=== PATIENT | female | born 1980 | race African-American/Black ===

== ENCOUNTER 2020-06-12 12:52 | Emergency (ER) | payer OTHER ==
[~2020-06-12] VITALS: Ht 182.9 cm; Wt 196.2 kg
[2020-06-12] MEDS ORDERED: INDO50CA91 PO (13:03)
[2020-06-12] MEDS ORDERED: BENZONATATE 100 MG CAP PO ONE (13:45)
[2020-06-12] MEDS ORDERED: MORPHINE 4 MG/ML 1ML VIAL/SYRINGE (J2270) IV ONE (13:45)
[2020-06-12 14:14] LABS: VENOUS BASE EXCESS 2.3 (-2.0-2.0); VENOUS HCO3 29.5 MEQ/L (23.0-27.0); VENOUS O2 SATURATION 55.1 % (60.0-80.0); VENOUS PARTIAL PRESSURE O2 29.9 mmHg (30.0-50.0); VENOUS PH 7.332 UNITS (7.330-7.430); VENOUS STANDARD HCO3 25.4 MEQ/L; VENOUS TOTAL CO2 31.3 MEQ/L (24.0-28.0)
[2020-06-12 14:20] LABS: BASO % 0.8 % (0.0-1.0); EOS # 0.1 10^3/uL (0.0-0.5); EOS % 2.6 % (0.0-3.0); HEMATOCRIT 42.2 % (36.0-47.0); HEMOGLOBIN 13.3 g/dl (12.0-15.5); LYMPH # 1.9 10^3/uL (1.5-5.0); LYMPH % 49.3 % (24.0-44.0); MEAN CORPUSCULAR HEMOGLOBIN 30.1 pg (27.0-33.0); MEAN CORPUSCULAR HGB CONC 31.5 g/dl (32.0-36.5); MEAN CORPUSCULAR VOLUME 95.5 fl (80.0-96.0); MONO # 0.2 10^3/uL (0.0-0.8); MONO % 5.8 % (2.0-8.0); NEUTROPHILS # 1.6 10^3/uL (1.5-8.5); NEUTROPHILS % 41.5 % (36.0-66.0); PLATELET COUNT, AUTOMATED 176 10^3/uL (150-450); RED BLOOD COUNT 4.42 10^6/uL (4.00-5.40); WHITE BLOOD COUNT 3.8 10^3/uL (4.0-10.0)
--- OUTSIDE RECORDS SUMMARY | 2020-06-12 14:23 | CCD | Summary of Care ---
Author Author [facility] Address Unknown Phone Unavailable Care Team Providers Care Preservationist Name Role Phone Raya Guerrero GAS TRANSFER OPERATOR PCP Reason for Visit * Reason Comments Follow-up Encounter Details Care Team Description Date Type Department Casie Larsen MD [address] [place] [id number] Morbid obesity (Primary Dx) 04/01/2020 Telemedicine [facility] at [address] [id number] Allergies No Known Allergiesdocumented as of this encounter (statuses as of 04/12/2020) Medications End Date Status Medication Sig Dispensed Refills Start Date Active Indomethacin 25 MG Oral Take 75 mg by 0 Capsule (INDOCIN) mouth Two times daily with meals Active Ibuprofen 800 MG Oral Take 800 mg 0 Tablet by mouth (MOTRIN)Indications: BMI every 6 (six) 60.0-69.9, adult, Morbid hours as obesity needed for Pain documented as of this encounter (statuses as of 04/12/2020) Active Problems No known active problemsdocumented as of this encounter (statuses as of 04/12/2020) Social History Date Tobacco Use Types Packs/Day Years Used Quit: 2008 Former Smoker Cigarettes 1 8 Smokeless Tobacco: Never Used Drinks/Week oz/Week Comments Alcohol Use 2 Shots of liquor 2.0 socially Yes Sex Assigned at Date Recorded Not on file documented as of this encounter Last Filed Vital Signs Not on filedocumented in this encounter Progress Notes * Casie Larsen MD - 04/01/2020 9:15 AM EST Casie Larsen MD, FACS, FASMBS, ZACKM Diplomat Min[facility]ally In[facility] Bariat[facility] [address] [facility], Physician's Office [facility], [address] [place] [address] CHIEF COMPLAINT: No chief complaint on file. Visit # 2 for pre-op / medical weight loss. HISTORY OF PRESENT ILLNESS: The patient is a 39 y.o. female who was seen for mon itoring of weight loss and screening for possible medical complications and nutr itional deficiencies. Measurements in clinic today are There were no vitals take n for this visit. There is no height or weight on file to calculate BSA. She has no complaints today. The patient's dietary lifestyle habits consist of 2 meals/snacks per day. The pa tient eats based on schedule. Portion size is approximately 3 oz per meal. The patient stops eating once feels satisfied . The patient eats approximately none calories per day based on estimation. The patient is making fair food choices. Exercise routine: No Exercise frequency: frequently Exercise length: 10 minutes per session There is no problem list on file for this patient. Current Outpatient Medications: Ibuprofen 800 MG Oral Tablet (MOTRIN), Take 800 mg by mouth every 6 (six ) hours as needed for Pain, Disp: , Rfl: Indomethacin 25 MG Oral Capsule (INDOCIN), Take 75 mg by mouth Two times daily with meals, Disp: , Rfl: Past Medical History: Diagnosis Date DJD (degenerative joint disease) Emphysema lung Hip pain History of snoring Knee pain Low back pain Menstrual irregularity IRINA (obstructive sleep apnea) No CPAP Shortness of breath Stress incontinence, female No past surgical history on file. No family history on file. Social History Socioeconomic History Marital status: Spouse name: Not on file Number of children: Not on file Years of education: Not on file Highest education level: Not on file Occupational History Not on file Social Needs Financial resource strain: Not on file Food insecurity Worry: Not on file Inability: Not on file Transportation needs Medical: Not on file Non-medical: Not on file Tobacco Use Smoking status: Former Smoker Packs/day: 1.00 Years: 8.00 Pack years: 8.00 Types: Cigarettes Quit date: 2007 Years since quittin.9 Smokeless tobacco: Never Used Substance and Sexual Activity Alcohol use: Yes Alcohol/week: 2.0 standard drinks Types: 2 Shots of liquor per week Comment: socially Drug use: Not Currently Types: Marijuana Comment: 2007 quit Sexual activity: Not Currently control/protection: I.U.D. Lifestyle Physical activity Days per week: Not on file Minutes per session: Not on file Stress: Not on file Relationships Social connections Talks on phone: Not on file Gets together: Not on file Attends protestant service: Not on file Active member of club or organization: Not on file Attends meetings of clubs or organizations: Not on file Relationship status: Not on file Intimate partner violence Fear of current or ex partner: Not on file Emotionally abused: Not on file Physically abused: Not on file Forced sexual activity: Not on file Other Topics Concern Not on file Social History Narrative Not on file REVIEW OF SYSTEMS: [Option: Pertinent items are noted in HPI. ] GENERAL: Denies fevers, chills or malaise. SKIN: Denies new rashes, sores. HEAD: Denies new headache, migraine. EYES: Denies any vision change, diploplia. RESPIRATORY: Denies cough, sputum, hemoptysis. CARDIAC: Denies chest pain, palpitations, dyspnea, orthopnea. GI: Denies nausea, vomiting, vomiting of blood, change in bowel habits. URINARY: Denies polyuria, dysuria, nocturia, hesitancy. MS: Denies new back pain or other joint pain. ASSESSMENT: The patient is doing fairly well. PLAN: The current diet and exercise regimens were reviewed in clinic, including protei n and average fluid intake. Recommendations for continued safe weight loss, hea lth and nutrition were discussed in detail. The patient was encouraged to contin ue diversifying the diet and to maintain and expand the exercise program. Specif ically: 1. RD recommendations 2. Bariatstic 3. PA daily 30 min A return appointment will be scheduled in 1 month for her next medical weight lo ss visit. Patient is encouraged to call the clinic with any questions or concerns. Patient demonstrates understanding, is amenable to the outlined plan, and there were no barriers to education today. This is a telephonic visit which was performed without the use of video technolo gy due to patient inability to connect with video. The patient was informed of t he risks including security breach, technological failure, inability to perform a physical exam which could delay or prevent an accurate diagnosis, and potentia l complications from treatment decisions rendered over a telephonic platform. Th e patient understands and consented to the use of a telephonic visit/telephone c all. Time spent on the telephonic visit today: 15 minutes Casie Larsen MD documented in this encounter Plan of Treatment Care Team Description Date Type Specialty 06/01/2020 Telemedicine Surgery Health Maintenance Due Date Last Done Comments MMR Vaccines (1 of 1 - 1982 Standard series) Varicella Vaccines (1 of 1982 2 - 2-dose childhood series) DTaP,Tdap,and Td Vaccines 1988 (1 - Tdap) HIV Screening 1994 Cervical Cancer Screening 2002 5 years Influenza Vaccine 01/21/2020 Pneumococcal Vaccine: 65+ 2046 Years (1 of 1 - PPSV23) HIB Vaccines Aged Out No longer eligible based on patient's age to complete this topic Hepatitis A Vaccines Aged Out No longer eligibl e based on patient's age to complete this topic Hepatitis B Vaccines Aged Out No longer eligibl e based on patient's age to complete this topic IPV Vaccines Aged Out No longer eligible based on patient's age to complete this topic Pneumococcal Vaccine: Aged Out No longer eligib le based on patient's age to Pediatrics (0 to 5 Years) complete this topic and At-Risk Patients (6 to 64 Years) documented as of this encounter Results Not on filedocumented in this encounter Visit Diagnoses Diagnosis Morbid obesity - Primary documented in this encounter
--- OUTSIDE RECORDS SUMMARY | 2020-06-12 14:23 | CCD ---
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 Research Ecologist Name Role Phone Kody SUAZO Unavailable Unavailable Larsen, Casie Unavailable Unavailable Larsen, Casie Unavailable Unavailable Larsen, Casie Unavailable Unavailable Larsen, Casie Unavailable Unavailable Larsen, Casie Unavailable Unavailable Larsen, Casie Unavailable Unavailable Larsen, Casie Unavailable Unavailable Larsen, Casie Unavailable Unavailable Larsen, Casie Unavailable Unavailable Larsen, Casie Unavailable Unavailable Larsen, Casie Unavailable Unavailable Larsen, Casie Unavailable Unavailable Larsen, Casie Unavailable Unavailable Larsen, Casie Unavailable Unavailable Larsen, Casie Unavailable Unavailable Larsen, Casie Unavailable Unavailable Larsen, Casie Unavailable Unavailable Larsen, Casie Unavailable Unavailable Larsen, Casie Unavailable Unavailable Larsen, Casie Unavailable Unavailable Larsen, Casie Unavailable Unavailable Larsen, Casie Unavailable Unavailable Larsen, Casie Unavailable Unavailable Larsen, Casie Unavailable Unavailable Larsen, Casie Unavailable Unavailable Larsen, Casie Unavailable Unavailable Larsen, Casie Unavailable Unavailable Larsen, Casie Unavailable Unavailable Larsen, Casie Unavailable Unavailable Larsen, Casie Unavailable Unavailable Larsen, Casei Unavailable Unavailable Larsen, Casie Unavailable Unavailable Larsen, Casie Unavailable Unavailable Re-disclosure Warning The records that you are about to access may contain information from federally-assisted alcohol or drug abuse programs. If such information is present, then the following federally mandated warning applies: This information has been disclosed to you from records protected by federal confidentiality rules (42 CFR part 2). The federal rules prohibit you from making any further disclosure of this information unless further disclosure is expressly permitted by the written consent of the person to whom it pertains or as otherwise permitted by 42 CFR part 2. A general authorization for the release of medical or other information is NOT sufficient for this purpose. The Federal rules restrict any use of the information to criminally investigate or prosecute any alcohol or drug abuse patient.The records that you are about to access may contain highly sensitive health information, the redisclosure of which is protected by Article 27-F of the [facility] Public Health law. If you continue you may have access to information: Regarding HIV / AIDS; Provided by facilities licensed or operated by the [facility] Office of Mental Health; or Provided by the [facility] Office for People With Developmental Disabilities. If such information is present, then the following [facility] mandated warning applies: This information has been disclosed to you from confidential records which are protected by state law. State law prohibits you from making any further disclosure of this information without the specific written consent of the person to whom it pertains, or as otherwise permitted by law. Any unauthorized further disclosure in violation of state law may result in a fine or custodial sentence or both. A general authorization for the release of medical or other information is NOT sufficient authorization for further disc losure. Encounters Encounter Providers Location Date Indications Data Source(s ) Outpatient Attender: Casie Larsen 06/28/2020 12:00:00 AM [facility] Outpatient Attender: AMNDO SUAZO 06/28/2020 12:00:[address] [facility] Outpatient 06/01/2020 12:00:[address] [facility] Outpatient Attender: MANDO SUAZO [id number] 04/11/2020 12:00:[address] [facility] Outpatient Attender: Casie Larsen [id number] 04/01/2020 12:00:00 AM EST - 04/01/2020 10:30:[address] [facility] Outpatient Attender: MANDO SUAZO 04/01/2020 12:00:[address] [facility] Outpatient Attender: Casie Larsen [id number] 02/24/2020 12:00:00 AM EST - 02/24/2020 03:47:38 PM EST Body mass index (BMI) 60.0-69.9, adult [facility] Body mass index (BMI) 60.0-69.9, adult Outpatient Attender: MANDO SUAZO [id number] 02/04/2020 12:00 :00 AM EDT Morbid (severe) obesity due to excess calories [facility] Morbid (severe) obesity due to excess ca lories Outpatient 11/24/2019 12:00:00 AM [facility] Insurance Providers Payer name Policy type / Coverage type Policy ID Covered constitution party ID Covered constitution party's relationship to horn Policy Horn Plan Information [facility] [id number] [facility] [id number] [facility] [id number] Self [id number] Problems, Conditions, and Diagnoses Code Display Name Description Problem Type Effective Dates Data Source(s) E66.01 Morbid (severe) obesity due to excess ca lories Morbid (severe) obesity due to excess calories Diagnosis 02/24/2020 02:11:32 PM EST [facility] Z68.44 Body mass index (BMI) 60.0-69.9, adult B edwina mass index (BMI) 60.0-69.9, adult Diagnosis 02/24/2020 02:11:32 PM [facility] Z71.3 Dietary counseling and surveillance Dietary coun seling and surveillance Diagnosis 02/04/2020 08:19:38 AM [facility] Results ID Date Data Source [id number] 04/12/2020 06:11:05 PM [facility] Name Value Range Interpretation Code Description Data Valerie rce(s) Supporting Document(s) Progress Note [facility] OOOATg3vUwHFQvVh89/NNHkjXJHne1DxOUpyHVz8QTswBJXpR3YeMBK1bB7iCHC3OEiKLpYqTlEsMhWv lbm [file] JbKbT9VxMrHR4RKp0CZpQ1ZHD2tUNsZl4TZOM7UBRULeLkSX8UCDg= ID Date Data Source [id number] 04/11/2020 01:33:43 PM EST [facility] Name Value Range Interpretation Code Description Data Valerie rce(s) Supporting Document(s) Progress Note [facility] KEUQWq0jKiRKAjWz01/LPCouBNBxk9GaJUbsDIh3JJghQAEyZ1LcODD8mT7xPWF3TDgSLuHiXhCpPkXm lbm VsJkbKVgJeBDLxWhxOPdHkUSdrUbrglFXkGX6VlYA1SCWuL02yBIEpQPFeU1NrKUMuXlP+Lg7TIVZpoC VsWV4YHhyA5U1hsrmPYx5cxN5uyqMVu9nG0h05IaEUWnThLrEbU2qUim4JqijH28tlPzP03W+1a0l3Ik PThEvOMXYQ+3W24P9sTwI7QhxloDws/PM/cRgFnueJ /G/8C8OuGJ8FW/5XLDR6obl8I7PWJRHeHz4kO2btwVr99ERteo42jkGC8N8TvLy82CGY6yAmRMelkbpE yLnH1YWNJEy4t/tsHfK2CvRXNujlq1iva+F/wPdviQ7qR+eJslyAcrbZL7EGAbSul6HLSvhlitmnfxNm iON3CszmIt8xUvWA+qmB7QWcEplGdqbE1vLlSa522J 10rnbv1RbLH4YyCLbwOTvW3PG/mt7GIaA/iZH2epDf8AwcWY5fs3Oqsh4fAESNHE+camouflage assembler/JUJhsi8z7S5 [file] AgICAgICAgICAgICAgICAgICAgICAgICAgICAgICAgICAgICAgICAgICAgICAgICAgICAgICAgICAgIC AgICAgICAgICAgICAgICAgICAgICAgICAgICAgICAN CiAgICAgICAgICAgICAgICAgICAgICAgICAgICAgICAgICAgICAgICAgICAgICAgICAgICAgICAgICAg ICAgICAgICAgICAgICAgICAgICAgICAgICAgICAgICAgICAgICAgICANCiAgICAgICAgICAgICAgICAg ICAgICAgICAgICAgICAgICAgICAgICAgICAgICAgIC AgICAgICAgICAgICAgICAgICAgICAgICAgICAgICAgICAgICAgICAgICAgICAgICAgICANCiAgICAgIC AgICAgICAgICAgICAgICAgICAgICAgICAgICAgICAgICAgICAgICAgICAgICAgICAgICAgICAgICAgIC AgICAgICAgICAgICAgICAgICAgICAgICAgICAgICAg ICANCiAgICAgICAgICAgICAgICAgICAgICAgICAgICAgICAgICAgICAgICAgICAgICAgICAgICAgICAg ICAgICAgICAgICAgICAgICAgICAgICAgICAgICAgICAgICAgICAgICAgICANCiAgICAgICAgICAgICAg ICAgICAgICAgICAgICAgICAgICAgICAgICAgICAgIC AgICAgICAgICAgICAgICAgICAgICAgICAgICAgICAgICAgICAgICAgICAgICAgICAgICAgICANCiAgIC AgICAgICAgICAgICAgICAgICAgICAgICAgICAgICAgICAgICAgICAgICAgICAgICAgICAgICAgICAgIC AgICAgICAgICAgICAgICAgICAgICAgICAgICAgICAg ICAgICANCiAgICAgICAgICAgICAgICAgICAgICAgICAgICAgICAgICAgICAgICAgICAgICAgICAgICAg ICAgICAgICAgICAgICAgICAgICAgICAgICAgICAgICAgICAgICAgICAgICAgICANCiAgICAgICAgICAg ICAgICAgICAgICAgICAgICAgICAgICAgICAgICAgIC AgICAgICAgICAgICAgICAgICAgICAgICAgICAgICAgICAgICAgICAgICAgICAgICAgICAgICAgICANCi AgICAgICAgICAgICAgICAgICAgICAgICAgICAgICAgICAgICAgICAgICAgICAgICAgICAgICAgICAgIC AgICAgICAgICAgICAgICAgICAgICAgICAgICAgICAg ICAgICAgICANCjw/iCNpV8kawBSayjA5W9hyRp0URf2BMT0wd9MjEQRlMHfqtyXoCwmSSjCnWRQqKegT Bpp9JJtxKD7IhMFhP2IkS8IpOWsiDA5IEKBwVLOgdUOhFUCiOGFvDyL2DLFoYUmqQX7AaMOdDXbnGSFz DCCaOwKpRVLbGKChINVhNTOcGDSJVI8KWbMgD3BjwL 31HNTSTs2+GIekqxMaNqyCBdM7WEIxc5YaTOv8QX3FFVXrSjloc8TcPtyvBRMPNPnrDN2ZNOT5JAW4OP HyIv9PGTSdY700uwNhXV3YMc3KRcFuVP9wxq6GVqdxMLCoRbcYLth6DIjhZX1HwZTpIZuYtc0ardMero WWz2NdceSyaSAJRNPwnDDdZWBSJDL5cK7jNHLPVOQC RV9sVXNbZLSqVxTqDvVcWYDiPZxnWSVDRNbIUkUzJ9Agx1PeCgO3GRAaUzSbZCsiQOCuMaN2UH24yTpu UN7BIMAmLREdVD07EUO0CJXmRf4FQg9KYtJaCR2yfu8SOnZsKMXgPbgBVzl0LMlkQW4FuAJgT1JoqXHh z0pFUsBzX2FLBJR1ZLTkXl5QFQZaGxNgYJPcPSbmII 0qLLWiWAVWeUppvfK2XI5NOQ7rpuMkJJ2HEdDlZb9mIk0QLyHbI8XaV5BiMYVfXVWGBBnkWG0ZKRuqNL 4mRU9Ay1DQmMBecT2yzp7FSJGvCCHqYjuzne8OQodmK1S8tCtlAVNkBktgFJXPDYwnVE7OMZCpVMU2OZ QzCfSqKSABNgGsF57cLF8UO6Zps29lBpT0STGjPzRp HMdzUZ40uNejegLcpLMukZtsLO4PKz2+DQplbmRvYmoNCnhyZWYNCjAgMzENCjAwMDAwMDAwMDAgNjU1 CcOuGg8XXFZzXMSmWVSbFdQqHPEbNXEkYNltRRLnRSZ7EMN8ESPlEUUqJX8WVkHqKPRtZuRwWgNdAIQh VIHfno3NQVDbASNvEBC2HuXnXYBcBUXcPLhfNFKoCZ RyKDshRYHjSLMwVG8ODnXiOYAtRMU2EbOwVYEoXCUauq6LYEKaJLHuKyT1BcMcVFAeHEUqOSinYNWyNW I4DLI6XAZxFIZkGG4YQgYlPOLhWFNcPBJeYOThPPDkop0QFZZwVAYzQHQ2RMUnMBUpDKYcOFfdDDRfCR MuXWQ3OJVeWZArHE4HUmPvRWDzJEVlRJQyWYExXWTj bt5IULIeQNSgGRJxCxBgDNCwHTNjPEpfMEWbFRU8YpF1OGQxBAOnHQ4JCcVpMILwTNT2WQBxBGNlXWWn bx2ZDXPbGMWtWPB4OPEwPAElZOArRVodLCRaFKM3CwPnZMEzUIPqYQ7IAxFmSMOfFGS2GWCxQMXeJOZr fu8EXYZtBRIzKyG8YLCwLVUpCYDaKRecHNBbVMO6DT a0ORNdYMQeRE7ENlKnBQCgXlq0XNZgHZPfFYCedz3ALITpERBwHVR2HUZiPQBaOVKaRWzpIRCjEVC0Sf EtIVCjWVBvRJ2TTdWpCZMhZnokBGRnEJNeAPHget7YMYBtSUHjJLYkRWIwTHZiKXJxWIibVPAiETZ8VJ A0VUIkUTPoGH6JPlKwHMIkVqy2IhFvNQJmSMSgzt8N ZDCrYDWeTQO2QYXhJWLySFRhDFwdXXYtKCOaGIL7IZIgYPXmLF1LCxShUHSnWeJ8LQAdPTRfSPTpni0O lOKkwElqjl1EDDiIFk1UjZcmILCrOJygBv6ldGIkRGGzVQJQEd1DzvGwOLVpIESMKDwwTHDiYWt4EoLg TKZhIeH3N8YhVwWkPsslBxgpEaMzUfBjNtMmOrI1Pa e6RSF0EPUtUiBfIwYjMjC1PBVtTAKcBaBhVfQsNGT+PR7wQXq+Jp0Qm8PnpdD5zmMqMKpiHEx8ZQ8GLH XHO2BPLs== ID Date Data Source [id number] 02/24/2020 03:08:30 PM [facility] Name Value Range Interpretation Code Description Data Valerie rce(s) Supporting Document(s) Progress Note [facility] TLDVSh5gMcSTJuRb35/LFNyxTQNpl9JgYZscXZd5NJlcFVWfL3XxYPF0qN6oSMB3PZvDAvXuIlHyOXO8 lbm [file] AgICAgICAgICAgICAgICAgICAgICAgICAgICAgICAg VZTlKICeNRVqIYUzRMFcYUMlRWXuNAFzNBEwZBRmATGcMMVgWLDjWBPmOVMaNANiRJYwJYAxDY8KZCPj ICAgICAgICAgICAgICAgICAgICAgICAgICAgICAgICAgICAgICAgICAgICAgICAgICAgICAgICAgICAg ICAgICAgICAgICAgICAgICAgICAgICAgICAgICAgIC MtQAJgWO8HRHTlEMZfEXJuOSJjXMEeUETpLPUoYUFaDPWuLDIvJPVuUUScLOWcYFZcZGVtHQKuNRJyVC SdSYNdUPFwEVOkJSRwBJXjNIQpIXJwXRKkWNMhOVUvQJUtTMUmIHAxLLPuVSWhJZ8VHCWmCFNrYWFjCP AgICAgICAgICAgICAgICAgICAgICAgICAgICAgICAg YSRmQNIhAFFgTVIoLXWdRBAaOHZlWRAwZBPzKYCoENCrRBUvPOYeDEOkLKKfGQMwJFVhZPYcKIQfSB2O ICAgICAgICAgICAgICAgICAgICAgICAgICAgICAgICAgICAgICAgICAgICAgICAgICAgICAgICAgICAg ICAgICAgICAgICAgICAgICAgICAgICAgICAgICAgIC ZaTNUnGMHrFQ4AAJLaVDGgROQwWAFlEQFzVFDzTUYmPBTlTXIlZOIvPQCaMFHeLKZxHKIvRGFeXWJhMH CqUKBoLQRlQCYnTXZsGIGtHLEjONMgXKYiWHWrHHZtGEQiFVZzMAAkBZCeHCIcMSLuZA8UDQMeECVwTC AgICAgICAgICAgICAgICAgICAgICAgICAgICAgICAg ICAgICAgICAgICAgICAgICAgICAgICAgICAgICAgICAgICAgICAgICAgICAgICAgICAgICAgICAgICAg ZT9SOBIjQGTcHOOuMOCcTWHnXOElRLYgZNKmHBTqFJCyVBKhSXRxTQEdBVTwUDHiXDEzRZKxTPJiCMIr ICAgICAgICAgICAgICAgICAgICAgICAgICAgICAgIC FfPYMxIVNpJPGgKA3GHZGbXSFzEAYnQZHmUALwXUSjWETuKZRoPKEqLSQpVJUjKPSvZMMfWINzTEKrSS JsJIPdNHZiWEZwOXNjYXZrNPXyZJZoKJQeBUVzJGImRXXwLQUkTFDcEAExNOZzPNMyNDSqRJ7RZEJtLB AgICAgICAgICAgICAgICAgICAgICAgICAgICAgICAg ICAgICAgICAgICAgICAgICAgICAgICAgICAgICAgICAgICAgICAgICAgICAgICAgICAgICAgICAgICAg GHPuWM9RMF74qLSsz3Y3DXTdXC8ejsk/Lj7YJDtotgHdrKDnIR2UNgJiBW0afn0ZYlFvSN0tev6NTAyK YkKuG0N2xJRlULHePZHJBdAnQ74nLRwcSn68AFjrOW WsYpYvUPe5Pp9ASlRvP3pxBRYlHmA9OANgDbY8SQIsObG7SJImTjRsOQEyFQSuXYYjYYWBEUS8BZSsJj ZhXXldWP2Ph8QnoQK8JUe+Bp8VHC8ia3RkQFhxLBOoOT1jbg0HYOtPPnSjY8RejcY5WYX9BTRsNr3IUR ZjGDEwpVOoGwVsTEGYRlMwY4AlvI40VCAIQa6+DQpl axDsRtcCGrT5JXMng0FxOIs2IH5PBGIcURy5nEPlEZTbP0Zxu9CyDl26OXWgJrsqLygrwhcoDUNlW691 dhvoCNEgRHDyOEEnYZ8pTFUxKAWcDiLbMBVPZW2EJFKoLKXxmATnXBObCTQVVO9BZRulYMS8MPEueiXf xUQlCCblRY6VZPQokaMoEvOrJJTZZWl+Sn0OYX2oa7 TzEXwmQqDnPL2lgk4KUGdOEmFiH5Q1cDGbK8B8KPjvDt9OYCLbLEVfOrBbQEDVEXbpLU5RJT5czmZ0ZY 8ByNNrQOBmMWOcaXCrNSa6O69upSJmRUmoUX1DOQF+Chantel+Bi1LWEQdERZcFNIrNsJgFLCSBfGwV0IiN9 CJd8DdP9HqPK07fScvdyFuCShaPP2VJE8nCRCdSZJD AG7XnWWeoV4kkyWjHDVtOJXBHsQwJ34zyIRpUQHqMFD2IQClEl1SNMAtI1RikfMlvQqiyhUwEPOqHDNU FZ1ZHAcockNvqVUwgUimTL10zIklKA0LBq0YRhOaVA9elz1DgLRbWf4ANDQxCH7YQDTeYLMtPOGgUKN4 NCLaDkWcBEhyRIGxQFAoIWE2FHEiHXIqEI5JZtEcJS BlCQVxLegyHLRnNEWshq5UWZTuTBZ6ZnqeFAEsXLHhZORkVIriPFJxCXBbZOB1SEGsEWDlUQ4CNlTrJJ ZyFXHdJZzrVNSaXPHres4UIPJhKBFuDHX3LxFdATUoFHAjQUokRZQcOZW8RlHaAKKsUSRtYA0UFoBbDB LxNXh8WfnbUETnBXQfwr2UZDPuINNwSZP9NrGzOHDc XJIuIEbcMUBvXNR0QNJjCWZhIHLaUU8GWjJfTDXfBUZ6DKThTHZzPRQeef9STJVfGOSxYeZ4BYMuPETb NGQyQHavNFSxLDS4Qtk9YYJyZGKmLO9BIbNzUDBwSMqnGZTvWQHyIMPnsu1DFCHyZWPiPyNaIsXzVGGb KOQkQDmqXXWtKPV8UNK3GOPfHOOtDK7MOoGqIHMzXD w9NppdKGBpGVJqza8PBZIeOLMgQQs3DrDrPDZfEMJbUXrpUVWcEQP4IFN1ZKFkGTMsFT5AYoBtNYTbWc VoRWvmZRLiVNBuxy5DOABoOMBzKETxNLFkSJKvOAAcNIiaZLAdVAMzNTG1NSOjMHMxNF9ZCoVyGFYeLF L7BNFnQUZqECEiyp0MHOCkRSL4BiY0HBBvTJSmUGNz PDekUQJkHDM8TqAmNNRsVNScEN4GRpKhNZTeGGtvCAMcXTKfEZRxgy1ONJReVJE2OLI6EYXxPPPgFVDy GZpmJGFeNCL0Eul4GCVyQOUdCU8RJfYxYOTgMKq6CzGyWBLcHPLchj8ZNQWfPJS0XDc9PuJrZBNzFSGi OMfeGPAhTTKbKpnsRDMvTODjRF2FMbOeLSErFJS8Rw mpUODlQPFckv7QLBZiYED1ADH4WgTwEJRjVBJgQJiaXNGgKYAjWDidVFFjTGGjQI9QJjBlUDHiUOK8Zr AtATEeUZRcch7WMGBdCRD8SmHmWkZzAQWwXZAdHStvLIBcIQTwXTvbHIJjPJTsDU6TBdKbIPcvHXPNJd e4IGmgX3v1KLPaMQ5VB6Ycq8UcDnckONZGFKskGA7f gpAkUPJbRz5IU2qMFuoqGaLnYYK9HcAdKEC0IgpuTGMxMqPkEIX8IuKeGEY2St0rRPU9VMR9ZmFqUfE4 NfakJKQ7I0VfRMFmUSY9VnPuEXq7NgNwWG2TMl8XSjY8HPD2qNJcMs5TQBY6OpNKNuYxRX0JGUy= ID Date Data Source [id number] 02/04/2020 10:39:56 AM EDT [facility] Name Value Range Interpretation Code Description Data Valerie rce(s) Supporting Document(s) Progress Note [facility] PNTFPn2zJzOKMwTd34/GHYutAWNyj5PtBFodXSb3APjhDDUjT5XjDAL9mX0iQKK1ZYtRIwCsJvKqYUL1 lbm [file] Atfhau7Ur7nw9Gn7ThJXhDR0zdnSxZZkAZXPzt+ky3i1LdAnWREw/I3yn6e/maoq/FQiXnL0sDod++Del[employer]essen [employer] Manager [file] rpdE1NczuWRE6Vx/Jose R/4OPvSYvys+GoGe0wP/W3ZwN0CaOEY8+KAIyJ3zspUVQ0YWsKMWNvEZbonJ8O [file] ICAgICAgICAgICAgICAgICAgICAgICAgICAgICAgICAgICAgICAgICAgICAgICAgICAgICAgICAgICAg ICAgICAgICAgICAgICAgICAgICAgICAgICAgICAgIC AgICANCiAgICAgICAgICAgICAgICAgICAgICAgICAgICAgICAgICAgICAgICAgICAgICAgICAgICAgIC AgICAgICAgICAgICAgICAgICAgICAgICAgICAgICAgICAgICAgICAgICAgICANCiAgICAgICAgICAgIC AgICAgICAgICAgICAgICAgICAgICAgICAgICAgICAg ICAgICAgICAgICAgICAgICAgICAgICAgICAgICAgICAgICAgICAgICAgICAgICAgICAgICAgICANCiAg ICAgICAgICAgICAgICAgICAgICAgICAgICAgICAgICAgICAgICAgICAgICAgICAgICAgICAgICAgICAg ICAgICAgICAgICAgICAgICAgICAgICAgICAgICAgIC AgICAgICANCiAgICAgICAgICAgICAgICAgICAgICAgICAgICAgICAgICAgICAgICAgICAgICAgICAgIC AgICAgICAgICAgICAgICAgICAgICAgICAgICAgICAgICAgICAgICAgICAgICAgICANCiAgICAgICAgIC AgICAgICAgICAgICAgICAgICAgICAgICAgICAgICAg ICAgICAgICAgICAgICAgICAgICAgICAgICAgICAgICAgICAgICAgICAgICAgICAgICAgICAgICAgICAN CiAgICAgICAgICAgICAgICAgICAgICAgICAgICAgICAgICAgICAgICAgICAgICAgICAgICAgICAgICAg ICAgICAgICAgICAgICAgICAgICAgICAgICAgICAgIC AgICAgICAgICANCiAgICAgICAgICAgICAgICAgICAgICAgICAgICAgICAgICAgICAgICAgICAgICAgIC AgICAgICAgICAgICAgICAgICAgICAgICAgICAgICAgICAgICAgICAgICAgICAgICAgICANCiAgICAgIC AgICAgICAgICAgICAgICAgICAgICAgICAgICAgICAg ICAgICAgICAgICAgICAgICAgICAgICAgICAgICAgICAgICAgICAgICAgICAgICAgICAgICAgICAgICAg ICANCiAgICAgICAgICAgICAgICAgICAgICAgICAgICAgICAgICAgICAgICAgICAgICAgICAgICAgICAg ICAgICAgICAgICAgICAgICAgICAgICAgICAgICAgIC AgICAgICAgICAgICANCjw/bYBnG1bymDAejwZ0B8jaSf2ARz2ISS8mo6XkPDMcLAoikeBfIerACtXwYB CoUvdFWwu2AOleAA3AjFKvB4XfP9YhZIciCP5NTXImQGKkwMNhYVLsEODgAsT5YEMuBVvbMX6PfDCrGP uhXJYaNBIjAG3HLEHeM288wiSlUE6UXs1AReQvHW4r ox6ZDaTgVMLbEzzEXra0YWnlXW1RmPYlsXQwIsUoATQJQqMyA0wks7FfOlDbBQZHNHkpAY4Jf8SqkGIt DQo+Tn7QYH4xt5MwHNwfQkVmSZ9cfd5VRQyGMaJiQ1PwwUywZYSbd0zpUZWyKO0dqQJzCNV2ODMpoaHk SDHNADlbjgHcncdnIgVpRLOQOjRoiXKgEJ5tCZ9kXC NtKPL1BnLmTCSZMI8UYMLeHUOilQYmXXQfUCXQDX9PAEhiZXE0RVSnhoTkpADeWDeaXO1SJURwuhOtSn IgMCBSDQo+Dv7COX0uz0LeODtvBOSgTL6vzl1MHTgBRxFfA4K5rUSwZ2O0TBmxBz9PJROmPIYcEsKqBP DNQXbwTA0HUM7ljhE8XQ3PeHQwQPRuZXFpoXGkHRy0 P77qwAFjIHctXX6NDQS+Chantel+Ay7NWIBsECPgRSZbNmDwRJNDOkOaD0IlJ0FIb1VaL7ZoYY22xTwmgjHe HFllFY8PHM6sEVLaKBALMD9NlAKkqQ9gomVbSnPbDCZUZpQqS81qiXAjWCHkSINuDUNkXz7BTQRmA3Qg sqNvnPtjpuQjIPQeGXUEUD7ZENbjfjPjwUGuqEgvQN 34bNglFI3RCt9JYnFeNX6gdv4BiOReIi2YOUGlTZ5KJTDmZQExKCExJZU0KKInOpTqJSdcZNPyRQGhVC B7SPPyYYUmJV1COvRdNZVqKxZcTXVoXAFiCLIowu9LUZUpXZWlRvZaRPJhVNKuLJSbWCztDOAxVBPuOF T8BMAwKOTcFH3HTiOjZHBzWYI7AnKgWIQmPWPezi8K INOcFBArOWPlVZRdJPPtGXSgKGvlKALxHJX0QKdiHMTkJXIrDG9NNtPiNLPrASBpLtwvLQCnKXRyrq8G LHWyNVEkMXB9GFXcUOPxFNNiTNolEPMtAJZ3WcA2ENJbUMDjTJ6UKeOvWAYaCQR8GNtaVLAaLANnfv6H HBCkSXLhOhijNpTzRETiEREkWBkuHZXlELP8OVQmLZ ZmQOGiOQ5KIsIsBITzCYbiBficYEPgUMUsig0JGQUvWEMvJVF2XaHlWGBiCDYuCYmsSSQnHOS6NPN3VX VxYSIsDL1EBvPfCLBlACr9LdMwZFAjDVVkcj3EKRCkRRBjBZsgUtQdEDGgFXGnOFbcYOPrNHFeWGy4NC FnXEAnRE6FAjVxYLJvYyPcBkwiBETxGPQiqt9LFMTj QZWeGFY2HJVaEGEzCYUkHVokRAPfDZShHGLbDTWsQTQbOH9MXaVhEVKbZuAxPWIrYCKlBTPpzr2JPFDl HKYeMwX8VXCbQUIgAROoZGl5svHqsLWdFTw2RY3IB8CudsNdJvJDYv2Ze458ZUT1ABNcFz4ME2jgWo7n BEEuEWXBHx9JTWv2KuKdLlSuGcVfLaO5ArQ4UxHgTh vzTeQdUFZaNQllZ2T+VJn3XZDbBFK0JfTmOmIoGZRtCSQnR8K8CFE4MqSdFEMqES5tWMNSYk1+DQpzdG WrdHcjVNRMMnLmAKeuUPhkRNPWNg7W Procedure Social History Code Duration Value Status Description Data Source(s ) Alcohol intake 02/24/2020 12:00:00 AM EST Current drinker of al cohol (finding) completed Current drinker of alcohol (finding) [facility] Tobacco use and exposure 02/24/2020 12:00:00 AM EST Never used co mpleted Never used [facility] Cigarette pack-years 02/24/2020 12:00:00 AM EST UNK completed [facility] Cigarettes smoked current (pack per day) - Reported 02/24/20 12:00:00 AM EST UNK completed [facility] Smoking 02/24/2020 12:00:00 AM EST Former smoker completed Former smoker [facility] Alcohol intake 02/02/2020 12:00:00 AM EDT Current drinker of al cohol (finding) completed Current drinker of alcohol (finding) [facility] Vital Signs ID Date Data Source [id number] 02/24/2020 03:48:00 PM EST [facility] Name Value Range Interpretation Code Description Data Source(s) WEIGHT RECORDED 428.58 lb 428.58 lb [facility] Body height Measured 72 in 72 in [facility]st [facility]
--- OUTSIDE RECORDS SUMMARY | 2020-06-12 14:23 | CCD | Summary of Care ---
Author Author [facility] Address Unknown Phone Unavailable Care Team Providers Care Tie Layer Name Role Phone Yolanda Raay Fischer STOCK SELECTOR PCP Reason for Visit * Reason Comments Nutrition Counseling Encounter Details Care Team Description Date Type Department Mirela Herrera RD, CDN [address] [place] [id number] Morbid obesity; BMI 50.0-59.9, adult; Nutritional counseling 04/11/2020 [facility] [address] [phone] Allergies No Known Allergiesdocumented as of this encounter (statuses as of 04/11/2020) Medications End Date Status Medication Sig Dispensed Refills Start Date Active Indomethacin 25 MG Oral Take 75 mg by 0 Capsule (INDOCIN) mouth Two times daily with meals Active Ibuprofen 800 MG Oral Take 800 mg 0 Tablet by mouth (MOTRIN)Indications: BMI every 6 (six) 60.0-69.9, adult, Morbid hours as obesity needed for Pain documented as of this encounter (statuses as of 04/11/2020) Active Problems No known active problemsdocumented as of this encounter (statuses as of 04/11/2020) Social History Date Tobacco Use Types Packs/Day Years Used Quit: 2007 Former Smoker Cigarettes 1 8 Smokeless Tobacco: Never Used Drinks/Week oz/Week Comments Alcohol Use 2 Shots of liquor 2.0 socially Yes Sex Assigned at Date Recorded Not on file documented as of this encounter Last Filed Vital Signs Not on filedocumented in this encounter Progress Notes * Mirela Herrera RD, CDN - 04/11/2020 11:30 AM EST INITIAL NUTRITIONAL ASSESSMENT Date: 04/11/2020 Patient Name: Aranza Maceod : 1980 Patient's Desired Procedure: Lap vertical sleeve gastrectomy Physician: Dr Larsen Support System: This is a telemedical visit. The patient was informed of the risks including sec urity breech, technological failure, inability to perform a comprehensive physic al exam which could delay or prevent an accurate nutrition assessment, and poten tial complications from treatment decisions rendered over a telemedical platform . The patient understands and consented to the use of tele-health services via [employer] on this date. The patient is aware of co-pays and fees that are associated with this visit. Either the most recent weight on file or a stated weight will b e used for assessment and coding purposes. Diagnosis: 1. Morbid obesity 2. BMI 50.0-59.9, adult 3. Nutritional counseling See MD Note. There are no active problems to display for this patient. Assessment: Height Weight BMI Initial Weight IBW Pre-op weightgoal 6' pt doesn't have a scale There is no height or weight on file to calculate BMI. 428 lbs 184+/- 10% per MD Nutrition needs: REE: (SECA from 02/24/20) 2425 kcals/d Protein needs: 155 grams/day (0.8 gm/kg/ABW) Fluid needs: 2425 cc/day (1cc/kcal) Clinical Outcomes Wt Readings from Last 3 Encounters: 02/24/20 (!) 194.4 kg (428 lb 9.3 oz) 02/02/20 (!) 205.5 kg (453 lb) Currently working: no Living arrangements: w/ and 2 kids Mode of transportation: car Alcohol: no How much/often: very infrequently Tobacco Use: no Sleep-patient reports:has snoring Length of time patient has tried to lose weight: 11-15 years Diet History: Program Year Length Weight loss achieved (pounds) Gained (pounds) Atkins Ketogenic diet 60 all Contributing factors to current weight status: , not exercising, growin g up w/ a parent that was a head pastry chef Lowest adult weight: 290 lbs Highest adult weight: 483 lbs Review of Labs and Medications Pertinent Labs: No current labs available. No results found for: HGBA1C No results found for: IRON, TIBC, FERRITIN No results found for: VDT No results found for: LABPROT No results found for: LDLCALC No results found for: LDL No results found for: HDL No results found for: TRIG No results found for: COPPT, FOLATE, ZINC Medications: Current Outpatient Medications Medication Sig Dispense Refill Ibuprofen 800 MG Oral Tablet (MOTRIN) Take 800 mg by mouth every 6 (six) hours as needed for Pain Indomethacin 25 MG Oral Capsule (INDOCIN) Take 75 mg by mouth Two times d aily with meals No current facility-administered medications for this visit. Taking a complete multivitamin: no Food Intake Emotional eating: no History of eating disorder: no Diet recall/ diet journal comments: completed via the method of 24 hour recall: Patient was a "soul food" eater. She wanted to try reducing her meat intake and eat more vegetables for her health, and has gone mostly plant based the past 2 w eeks. She does not plan on eating strictly vegetarian for long. Food log: helped pt download Baritastic o Breakfast: hot water in AM w/ honey, tumeric, lemon juice o 1.5 cups oatmeal w/ blueberries and almond milk o Or a protein shake w/ [employer] protein powder (mixes in cashews and greens) o Lunch: salad w/ apple, juaquin, onion, vegan ranch dressing, cucumbers o Dinner: skipped o Snacks: carrots, tortilla chips, hummus Fluid Intake: 64oz or higher just water No coffee, tea, or EtOH Practicing the behaviors of eating and drinking: no Food Shopping: herself Food Preparation: herself Restaurant Dining: no How often: very infrequently Fast Food: no How often: very infrequently Food Cravings: yes Types: "soul food" Allergies/food intolerances: No Known Allergies Dental Issues: normal dentition for age Exercise Type:The patient does not participate in regular exercise at present. Limitations to movement/exercise: yes hip pain Nutrition Diagnosis: Excessive Energy Intake related to food- and nutrition-related knowledge deficit as evidenced by There is no height or weight on file to calculate BMI., consumi ng excessive amount of calories, skipping meals, limited exercise. Intervention Topics addressed: Nutrition Intervention: o Protein, CHO and Fluid needs o Importance of protein based meals o Potential for nutrient/vitamin deficiencies/Post-op vitamin protocol o Surgical capacity of stomach/Surgical changes to GI tract o Sugar and Fat restriction to minimize dumping/weight gain o Behavior modification: o Chewing foods to an applesauce consistency o Not drinking 30 minutes before meals, with meals, and to wait for 30 minutes a fter meals o Eating slowly, meals should be 20-30 minutes o Portion sizes o Potential food intolerances postoperatively o Importance of physical activity/exercise o Pre-operative healthy meal planning o Consuming 3 meals per day. Avoid skipping meals. o Reviewed The Plate Method Of Eating to effectively instruct on portion control to limit calories and assist with CHO consistency. o Avoid high calorie beverages. o Avoid grazing. o Avoid refined starches, high calorie foods, and high fat foods. Strategies used: demonstration, explanation and handouts Patient stage of change: Preparation Barriers to learning: none identified Readiness to Learn: asks questions, motivated to learn and verbalizes readiness Nutrition Handouts: Nutrition Guidelines Patient Goals, Monitoring: o Adhere to appropriate meal plan and behavioral program to achieve/maintain pre -op weight goal o Consume 3 meals per day with focus on eating protein and non-starchy vegetable s. May have a protein shake in place of one meal/day o Eliminate sugar sweetened beverages o Drink at least 64 ounces of sugar free, non carbonated, and non caffeinated fl uids a day. o Encouraged daily food diaries. o Recommend to start/continue a daily complete multivitamin. o Participate in at least 30 minutes of physical activity daily on most days of the week as medically feasible. o Baritastic: 50g CHO, 100+ g protein Plan and Follow Up Patient will be followed up with the Registered Dietitian in 1 month. Nutrition Class is scheduled for 06/01/20 Additional Comments: Nutrition care plan discussed with surgeon/STOCK SELECTOR. no Expected adherence: good Start Time: 11:30 am Stop Time: 12:05 pm Number of total minutes: 35 RD signature: Mirela Herrera RD, CDN documented in this encounter Plan of Treatment Care Team Description Date Type Specialty 06/01/2020 Telemedicine Surgery Health Maintenance Due Date Last Done Comments MMR Vaccines (1 - 1982 Standard series) Varicella Vaccines (1 [...] this encounter Visit Diagnoses Diagnosis Morbid obesity BMI 50.0-59.9, adult Body Mass Index 50.0-59.9, adult Nutritional counseling documented in this encounter
[2020-06-12 14:31] LABS: INR 0.93; PARTIAL THROMBOPLASTIN TIME 28.4 SECONDS (24.2-38.5); PROTHROMBIN TIME 12.7 SECONDS (12.5-14.3)
[2020-06-12 14:50] LABS: ALBUMIN 3.6 GM/DL (3.2-5.2); ALT/SGPT 21 U/L (12-78); BILIRUBIN,TOTAL 0.4 MG/DL (0.2-1.0); BLOOD UREA NITROGEN 15 MG/DL (7-18); C REACTIVE PROTEIN QUANTITATIV 0.35 MG/DL (0.00-0.30); CALCIUM LEVEL 8.3 MG/DL (8.5-10.1); CARBON DIOXIDE LEVEL 28 MEQ/L (21-32); CHLORIDE LEVEL 107 MEQ/L (98-107); CK-MB VALUE MASS < 1.0 NG/ML (<3.6); CPK CREATINE PHOSPHOKINASE 115 U/L (26-192); CREATININE FOR GFR 0.69 MG/DL (0.55-1.30); FERRITIN 100 NG/ML (8-252); GLOMERULAR FILTRATION RATE > 60.0 (>60); GLUCOSE, FASTING 83 MG/DL (70-100); MB/CK RELATIVE INDEX 0.87 (< OR =4); POTASSIUM SERUM 3.9 MEQ/L (3.5-5.1); SODIUM LEVEL 141 MEQ/L (136-145); TOTAL PROTEIN 7.5 GM/DL (6.4-8.2); TROPONIN I < 0.02 NG/ML (< 0.10)
[2020-06-12 14:59] LABS: D-DIMER QUANT 1133.98 ng/ml (<500)
[2020-06-12 15:07] LABS: HCG, SERUM QUALITATIVE NEGATIVE (NEGATIVE)
--- NOTE | 2020-06-12 16:00 | REP ---
INDICATION: Coronavirus workup. COMPARISON: None. TECHNIQUE: AP portable chest FINDINGS: The lung larkin are adequately inflated. CP angles are sharply defined. There is no pleural effusion or dense consolidation. I do not see any peripheral infiltrates. The heart, mediastinal and hilar contours are grossly normal. The aorta and airway are intact. Bony thorax shows no focal lesion. No free air under the diaphragm. IMPRESSION: No acute cardiopulmonary change. <Electronically signed by Carson Blanc > 06/12/20 [id number]
[2020-06-12] MEDS ORDERED: ISOVUE-370 76% 100ML VIAL As Ordered ONE (16:12)
[2020-06-12] MEDS: ALBUTEROL 90 MCG/ACT 8GM HFA INHALER INH SCH ×3 (16:15→16:47)
[2020-06-12 16:41] VITALS: BP 145/81
--- NOTE | 2020-06-12 17:22 | REP ---
INDICATION: COVID+, elev DDimer, incr. SOB, CP with inspiration. COMPARISON: AP chest 06/12/2020 TECHNIQUE: CT angiogram chest performed following the intravenous administration of 75 cc of Isovue 370. Sagittal and coronal reconstruction images are performed. FINDINGS: Lungs: Lung larkin show minor dependent atelectatic changes posteriorly in the lower lung zones without effusion, pulmonary nodule or pleural plaques. There is a triangular shaped consolidative opacity in the left mid lung zone antral laterally in the anterior axillary line. Irregular pleuroparenchymal opacity in the posterior right apex up to 2.3 cm. No calcified pleural plaque.. Mediastinum: No adenopathy. Pulmonary arteries: No evidence of pulmonary embolism. Suzi: No adenopathy. Axilla: No adenopathy. Pleura: No effusion. Heart: Not enlarged. No pericardial thickening or effusion. Thoracic aorta: No aneurysm or dissection. Upper abdominal structures: Somewhat prominent left hepatic lobe without gross hepatomegaly. Few calcifications in the spleen from old granulomatous disease. Gallbladder, adrenal glands, upper poles of kidneys and visualized pancreas unremarkable. Visualized osseous structures: Without acute finding.. IMPRESSION: No CT evidence of pulmonary embolism. No aortic aneurysm dissection. Triangular shaped opacity peripheral left upper lobe in the anterior axillary line. No subjacent pulmonary thromboembolism visible to suggest infarct, likely focal atelectasis or infiltrate not visible on the portable chest. Right posterolateral apex with pleural based density up to 2.3 cm. This also is not visible on the portable chest and both of these should be followed with short-term CT follow-up in 3 months. <Electronically signed by Carson Blanc > 06/12/20 [id number]
[2020-06-12] MEDS ORDERED: BREAMIS10 MC (17:50)
[2020-06-12] MEDS ORDERED: PROAAER10 INH (17:50)
[2020-06-12] MEDS ORDERED: TESS100C PO (17:50)
[2020-06-12] MEDS ORDERED: AZIT-12 PO (17:54)
[2020-06-12] MEDS ORDERED: ALBUTEROL 90 MCG/ACT 8GM HFA INHALER INH ONE (18:00)
[2020-06-12] MEDS ORDERED: AZITHROMYCIN 250MG TABLET PO ONE (18:00)
== END 2020-06-12 18:39 | disposition home or self-care (01) ==
LOC: M ED 12:52
DX: U07.1 COVID-19 (principal); Z79.899 Other long term (current) drug therapy; Z79.51 Long term (current) use of inhaled steroids; Z87.891 Personal history of nicotine dependence
CPT/HCPCS: 36415; 71045; 71275; 80053; 82550; 82553; 82728; 82803; 83605; 83735; 84145; 84484; 84703; 85025; 85379; 85384; 85610; 85730; 86140; 87798; 94640; 96374; 99284; J2270; Q9967